=== PATIENT | male | born 1990 | race American Indian/Alaskan Native ===

== ENCOUNTER 2019-03-09 17:07 | Emergency (ER) | payer SELFPAY ==
[2019-03-09] MEDS ORDERED: Sodium Chloride 0.9% 1,000 ML IV ONE (19:11)
[2019-03-09] MEDS ORDERED: Ondansetron 4 MG/2 ML SDV IV ONE (19:11)
[2019-03-09] MEDS ORDERED: Ketorolac 30 MG/ML SDV IVPUSH ONE (19:11)
--- NOTE | 2019-03-09 19:15 | EDM.PDOC ---
ED HPI GENERAL MEDICAL PROBLEM - General Chief Complaint: Abdominal Pain Stated Complaint: ILL FROM DIABETES MEDICATION Time Seen by Provider: 03/09/19 19:12 Source of Information: Reports: Patient History Limitations: Reports: No Limitations - History of Present Illness INITIAL COMMENTS - FREE TEXT/NARRATIVE: onset epiG pain N&V since last night after taking his metformin thinking his BS is high. hadn't been taking his Rx due to no $ and declined by [facility]. Middle Abdominal Pain Score (Numeric/FACES): 6 - Related Data Allergies Allergy/AdvReac Type Severity Reaction Status Date / Time amoxicillin Allergy Cannot Verified 03/09/19 17:39 Remember Home Meds: Home Meds metFORMIN HCl [Metformin HCl] 1,000 mg PO 03/09/19 [History] Past Medical History HEENT History: Reports: Impaired Vision Cardiovascular History: Reports: High Cholesterol, Hypertension Respiratory History: Reports: None Gastrointestinal History: Reports: None Genitourinary History: Reports: None Musculoskeletal History: Reports: None Neurological History: Reports: None Psychiatric History: Reports: None Endocrine/Metabolic History: Reports: Diabetes, Type II Hematologic History: Reports: None Immunologic History: Reports: None Oncologic (Cancer) History: Reports: None Dermatologic History: Reports: Psoriasis - Infectious Disease History Infectious Disease History: Reports: None - Past Surgical History Head Surgeries/Procedures: Reports: None Social & Family History - Family History Family Medical History: Noncontributory - Tobacco Use Smoking Status *Q: Never Smoker Second Hand Smoke Exposure: No - Caffeine Use Caffeine Use: Reports: None - Recreational Drug Use Recreational Drug Use: No ED ROS GENERAL - Review of Systems Review Of Systems: ROS reveals no pertinent complaints other than HPI. ED EXAM, GI/ABD - Physical Exam Exam: See Below Exam Limited By: No Limitations General Appearance: Alert, WD/WN, No Apparent Distress, Other (upset). No: Active Emesis Ears: Hearing Grossly Normal Throat/Mouth: Normal Voice, No Airway Compromise Head: Atraumatic Neck: Non-Tender, Full Range of Motion Respiratory/Chest: No Respiratory Distress Cardiovascular: Regular Rate, Rhythm GI/Abdominal Exam: Tender, Other (epiG region). No: Distended, Guarding, Rigid , Rebound Neurological: Alert, Oriented, Normal Cognition, Normal Gait, No Motor/Sensory Deficits Psychiatric: Flat Affect Skin Exam: Warm, Dry, Normal Color Lymphatic: No Adenopathy Course - Vital Signs Last Recorded V/S: Last Vital Signs Temp 36.2 C 03/09/19 17:40 Pulse 80 03/09/19 17:40 Resp 16 03/09/19 17:40 BP 159/105 H 03/09/19 17:40 Pulse Ox 99 03/09/19 17:40 - Orders/Labs/Meds Orders: Active Orders 24 hr Category Date Time Status POC Glucose [Blood Glucose Check, Bedside] [RC] ONETIME Care 03/09/19 17:44 Active Labs: Laboratory Tests 03/09/19 03/09/19 03/09/19 Range/Units 19:17 19:17 19:17 WBC 8.1 (5.0-10.0) 10^3/uL RBC 5.23 (4.6-6.2) 10^6/uL Hgb 17.0 (14.0-18.0) g/dL Hct 46.2 (40.0-54.0) % MCV 88.3 (80-100) fL MCH 32.5 (27.0-34.0) pg MCHC 36.8 H (33.0-35.0) g/dL Plt Count 276 (150-450) 10^3/uL Neut % (Auto) 69.8 (42.2-75.2) % Lymph % (Auto) 23.2 (20.5-50.1) % Potter % (Auto) 5.6 (2-8) % Eos % (Auto) 1.2 (1.0-3.0) % Baso % (Auto) 0.2 (0.0-1.0) % Sodium 132 L (135-145) mmol/L Potassium 3.8 (3.6-5.0) mmol/L Chloride 96 L (101-111) mmol/L Carbon Dioxide 26.0 (21.0-31.0) mmol/L Anion Gap 13.8 BUN 7 (7-18) mg/dL Creatinine 0.7 (0.6-1.3) mg/dL Est Cr Clr Drug Dosing 152.00 mL/min Estimated GFR (MDRD) > 60 BUN/Creatinine Ratio 10.00 Glucose 324 H (74-105) mg/dL Lactic Acid 1.2 (0.5-2.2) mmol/L Calcium 9.6 (8.4-10.2) mg/dl Total Bilirubin 1.0 (0.2-1.0) mg/dL AST 21 (10-42) IU/L ALT 42 (10-60) IU/L Alkaline Phosphatase 86 (42-121) IU/L Total Protein 7.6 (6.7-8.2) g/dl Albumin 4.1 (3.2-5.5) g/dl Globulin 3.5 Albumin/Globulin Ratio 1.17 Amylase 23 L (28-100) U/L Lipase 28 (22-51) U/L Ketones Negative Meds: Medications Discontinued Medications Generic Name Dose Route Start Last Admin Trade Name Freq PRN Reason Stop Dose Admin Sodium Chloride 1,000 mls @ 999 mls/hr 03/09/19 19:11 03/09/19 19:24 Normal Saline IV 03/09/19 20:11 999 mls/hr .BOLUS ONE Administration Ketorolac Tromethamine 30 mg 03/09/19 19:11 03/09/19 19:24 Toradol IVPUSH 03/09/19 19:12 30 mg ONETIME ONE Administration Ondansetron HCl 4 mg 03/09/19 19:11 03/09/19 19:24 Zofran IV 03/09/19 19:12 4 mg ONETIME ONE Administration - Re-Assessments/Exams Free Text/Narrative Re-Assessment/Exam: 03/09/19 20:04 results discussed with pt who is feeling good right now. Departure - Departure Time of Disposition: 20:38 Disposition: Home, Self-Care 01 Condition: Good Clinical Impression: Hyperglycemia without ketosis - Discharge Information Forms: ED Department Discharge Additional Instructions: 1) follow up with [facility] 2) avoid high sugar/carb content foods 3) recheck as needed
[2019-03-09 19:45] LABS: ANION GAP 13.8; CHLORIDE,CL 96 mmol/L (101-111); SODIUM,NA 132 mmol/L (135-145)
== END 2019-03-09 20:41 | disposition home or self-care (01) ==
LOC: DL.ED 17:07
DX: E11.65 Type 2 diabetes mellitus with hyperglycemia (principal); I10 Essential (primary) hypertension; Z79.84 Long term (current) use of oral hypoglycemic drugs; Z88.1 Allergy status to other antibiotic agents
CPT/HCPCS: 36415; 80053; 82009; 82150; 82962; 83605; 83690; 85025; 96361; 96374; 96375; 99284; J1885; J2405; J7030

== ENCOUNTER 2021-10-18 02:48 | Emergency (ER) | payer MEDICAID ==
[2021-10-18 03:33] LABS: ANION GAP 19.9 mEq/L (7-13); CHLORIDE,CL 105 mmol/L (98-107); SODIUM,NA 142 mmol/L (136-145)
[2021-10-18 04:13] LABS: AMPHETAMINES,URINE NEGATIVE (NEGATIVE); BARBITURATES,URINE NEGATIVE (NEGATIVE); BENZODIAZEPINE,URINE NEGATIVE (NEGATIVE); MDMA (ECSTASY), URINE NEGATIVE (NEGATIVE); METHADONE,URINE NEGATIVE (NEGATIVE); METHAMPHETAMINES,URINE NEGATIVE (NEGATIVE); OPIATES,URINE NEGATIVE (NEGATIVE); OXYCODONE,URINE NEGATIVE (NEGATIVE); PHENCYCLIDINE,URINE NEGATIVE (NEGATIVE); TCA,URINE NEGATIVE (NEGATIVE)
== END 2021-10-18 04:24 ==
LOC: DL.ED 02:48
DX: R07.81 Pleurodynia (principal); F10.920 Alcohol use, unspecified with intoxication, uncomplicated; I10 Essential (primary) hypertension; E11.9 Type 2 diabetes mellitus without complications; Z88.0 Allergy status to penicillin; Z79.84 Long term (current) use of oral hypoglycemic drugs
CPT/HCPCS: 36415; 71101-LT; 80053; 80305-QW; 80307; 81003; 82947; 83605; 85025; 99284-25